=== PATIENT | male | born 1970 | race Caucasian/White ===

== ENCOUNTER 2022-09-24 19:30 | Outpatient (CLI) | payer MEDICARE, OTHER | END 2022-09-24 19:31 | disposition home or self-care (01) | LOC: SLEEPLAB 19:30 | PROVIDERS: ATTEND Internal Medicine Critical Care Medicine | DX: G47.33 Obstructive sleep apnea (adult) (pediatric) (principal); R53.83 Other fatigue; R06.83 Snoring; G47.10 Hypersomnia, unspecified; I10 Essential (primary) hypertension; K21.9 Gastro-esophageal reflux disease without esophagitis; G47.00 Insomnia, unspecified | CPT/HCPCS: 95810 ==

== ENCOUNTER 2022-11-24 09:47 | Outpatient (CLI) | payer MEDICARE, OTHER | END 2022-11-24 09:48 | disposition home or self-care (01) | LOC: SCSMRI 09:47 | PROVIDERS: ATTEND Family Medicine | DX: M25.562 Pain in left knee (principal); M94.262 Chondromalacia, left knee ==